=== PATIENT | female | born 1980 | race Caucasian/White ===

== ENCOUNTER 2018-07-28 01:34 | Emergency (ER) | payer OTHER ==
[~2018-07-28] VITALS: Ht 162.6 cm; Wt 68.2 kg
[~2018-07-28 01:34] MED LIST: ACCOLATE10 MG; AMOXICILLIN500 MG PO; AUGMENTIN875TAB PO; CREON12000 UNT PO; FLONASE NASAL50 MCG; GENERESS FE OR; IMODIUM2 MG; KEFLEX500 MG PO; LO LOESTRIN PO; LOESTRIN 24 OR; MEDDOSEPAK PO; METRONIDAZOL500 MG PO; MUCINEX600 MG PO; NO HOME MEDS; PEPCID20 MG; PHENERGAN SUP12.5 MG; PREDNISONE20 MG PO; SUMATRIPTA1 IJ; TOBRAMYCIN0.3 % OD; ULTRAM50 M1 PO; ULTRAM50 MG OR; ZOFRAN ODT4 MG PO; ZPAK OR
[2018-07-28 02:06] LABS: HEMATOCRIT 33.3 % (37.0-47.0); HEMOGLOBIN 10.9 g/dl (12.0-16.0); IMMATURE GRANULOCYTES 0.2 % (0.0-5.0); MEAN CELL VOLUME 97.4 fL CALC (80.0-100.0); MEAN CORPUSCULAR HGB 31.9 pG CALC (26.0-32.0); MEAN CORPUSCULAR HGB CONC 32.7 g/L CALC (32.0-36.0); NEUT# 6.47 thou/uL (2.00-7.15); RED BLOOD COUNT 3.42 mill/uL (4.20-5.60); RED CELL DISTRI WIDTH 12.6 % (11.5-15.5)
[2018-07-28 03:02] LABS: ALBUMIN 3.8 g/dL (3.2-5.0); ALKALINE PHOSPHATASE 36 u/l (38-126); AMYLASE 53 u/l (30-110); ANION GAP 11 (6-22 (CALC)); BILIRUBIN, TOTAL 0.6 mg/dL (0.0-1.4); BUN 8 mg/dL (7-17); BUN/CREATININE RATIO 12 (12-20 (CALC)); CARBON DIOXIDE 25 mmol/l (22-30); CHLORIDE 107 mmol/l (95-108); CREATININE 0.6 mg/dL (0.5-1.0); GFR > 60 ML/MIN (>=60 (CALC)); GFR FOR AFR.AMER. > 60 ML/MIN (>=60 (CALC)); LIPASE 67 u/l (23-300); POTASSIUM 3.3 mmol/l (3.5-5.1); SODIUM 141 mmol/l (137-146); TOTAL PROTEIN 6.5 g/dL (6.3-8.2)
[2018-07-28 03:08] LABS: SGOT/AST 49 u/l (14-36)
[2018-07-28 04:14] LABS: URINE BILIRUBIN - DIPSTICK NEGATIVE (NEGATIVE); URINE BLOOD DIPSTICK TRACE-INTACT (NEGATIVE); URINE COLOR YELLOW; URINE GLUCOSE - DIPSTICK NEGATIVE (NEGATIVE); URINE KETONE NEGATIVE (NEGATIVE); URINE LEUK ESTERASE NEGATIVE (NEGATIVE); URINE NITRITE - DIPSTICK NEGATIVE (Negative); URINE PH 5.5 (4.5-8.0); URINE PROTEIN - DIPSTICK NEGATIVE (NEG-TRACE); URINE UROBILINOGEN - DIPSTICK 0.2 E.U./dL (0.2)
[2018-07-28 04:24] LABS: URINE CLARITY CLEAR
[2018-07-28] MEDS ORDERED: PROTONIX40 MG PO (05:47)
[2018-07-28 06:04] VITALS: BP 132/81
== END 2018-07-28 06:05 | disposition home or self-care (01) | DRG 392 ==
LOC: ED 01:34
PROVIDERS: Emergency Medicine
DX: R10.13 Epigastric pain (principal)
CPT/HCPCS: S0164

== ENCOUNTER 2020-05-08 02:52 | Emergency (ER) | payer BC ==
[~2020-05-08] VITALS: Ht 162.6 cm; Wt 70.5 kg
[~2020-05-08 02:52] MED LIST changes: +PROTONIX40 MG PO
[2020-05-08] MEDS ORDERED: PHENERGAN25 MG RE (03:46)
[2020-05-08] MEDS ORDERED: IMITREX6 MG/0.5 M SC (03:46)
[2020-05-08 04:24] VITALS: BP 109/60
== END 2020-05-08 04:24 | disposition home or self-care (01) | DRG 103 ==
LOC: ED 02:52
DX: G43.909 Migraine, unspecified, not intractable, without status migrainosus (principal)

== ENCOUNTER 2021-01-07 | Emergency (ER) | payer BC ==
[~2021-01-07] MED LIST changes: +IMITREX6 MG/0.5 M SC; +PHENERGAN25 MG RE
[2021-01-07] MEDS ORDERED: FIORICET PO (10:43)
[2021-01-07] MEDS ORDERED: ONDANSETRON4 MG PO (10:43)
== END 2021-01-07 11:13 | disposition home or self-care (01) | DRG 103 ==
DX: G43.909 Migraine, unspecified, not intractable, without status migrainosus (principal)

== ENCOUNTER 2022-08-15 03:51 | Emergency (ER) | payer BC ==
[~2022-08-15] VITALS: Ht 162.6 cm; Wt 70.1 kg
[~2022-08-15 03:51] MED LIST changes: +FIORICET PO; +ONDANSETRON4 MG PO
[2022-08-15 04:46] LABS: ALBUMIN 4.2 g/dL (3.2-5.0); ALKALINE PHOSPHATASE 37 u/l (38-126); ANION GAP 11 (6-22 (CALC)); BILIRUBIN, TOTAL 0.4 mg/dL (0.0-1.4); BUN 8 mg/dL (7-17); BUN/CREATININE RATIO 12 (12-20 (CALC)); CARBON DIOXIDE 24 mmol/l (22-30); CHLORIDE 107 mmol/l (95-108); CREATININE 0.7 mg/dL (0.5-1.0); GFR FOR AFR.AMER. > 60 ML/MIN (>=60 (CALC)); GFR OTHER RACES > 60 ML/MIN (>=60 (CALC)); LIPASE 64 u/l (23-300); SGOT/AST 33 u/l (14-36); SODIUM 138 mmol/l (137-146); TOTAL PROTEIN 6.8 g/dL (6.3-8.2)
[2022-08-15 04:50] LABS: POTASSIUM 4.1 mmol/l (3.5-5.1)
[2022-08-15 04:51] LABS: IMMATURE GRANULOCYTES 0.1 % (0.0-5.0); MEAN CELL VOLUME 92.9 fL CALC (80.0-100.0); MEAN CORPUSCULAR HGB 30.9 pG CALC (26.0-32.0); MEAN CORPUSCULAR HGB CONC 33.3 g/dL CAL (32.0-36.0); NEUT# 8.29 thou/uL (2.00-7.15); RED BLOOD COUNT 4.37 mill/uL (4.20-5.60); RED CELL DISTRI WIDTH 11.9 % (11.5-15.5)
[2022-08-15 04:52] LABS: HEMATOCRIT 40.6 % (37.0-47.0); HEMOGLOBIN 13.5 g/dl (12.0-16.0)
[2022-08-15 05:16] VITALS: BP 127/90
== END 2022-08-15 05:15 | disposition home or self-care (01) | DRG 880 ==
LOC: ED 03:51
PROVIDERS: Emergency Medicine
DX: F41.9 Anxiety disorder, unspecified (principal); T38.0X5A Adverse effect of glucocorticoids and synthetic analogues, initial encounter; J32.9 Chronic sinusitis, unspecified; R11.2 Nausea with vomiting, unspecified; R10.9 Unspecified abdominal pain
CPT/HCPCS: S0164

== ENCOUNTER 2022-08-17 11:24 | Emergency (ER) | payer BC ==
[~2022-08-17] VITALS: Ht 162.6 cm; Wt 65.9 kg
[2022-08-17] MEDS ORDERED: ZPAK PO (11:40)
[2022-08-17] MEDS ORDERED: ONDANSETRON4 MG PO (11:41)
[2022-08-17 11:52] LABS: HEMATOCRIT 41.2 % (37.0-47.0); HEMOGLOBIN 13.9 g/dl (12.0-16.0); IMMATURE GRANULOCYTES 0.1 % (0.0-5.0); MEAN CELL VOLUME 92.8 fL CALC (80.0-100.0); MEAN CORPUSCULAR HGB 31.3 pG CALC (26.0-32.0); MEAN CORPUSCULAR HGB CONC 33.7 g/dL CAL (32.0-36.0); NEUT# 6.16 thou/uL (2.00-7.15); RED BLOOD COUNT 4.44 mill/uL (4.20-5.60); RED CELL DISTRI WIDTH 11.9 % (11.5-15.5)
[2022-08-17 12:42] LABS: ALBUMIN 4.2 g/dL (3.2-5.0); ALKALINE PHOSPHATASE 31 u/l (38-126); ANION GAP 11 (6-22 (CALC)); BILIRUBIN, TOTAL 0.3 mg/dL (0.0-1.4); BUN 10 mg/dL (7-17); BUN/CREATININE RATIO 14 (12-20 (CALC)); CARBON DIOXIDE 28 mmol/l (22-30); CHLORIDE 107 mmol/l (95-108); CREATININE 0.7 mg/dL (0.5-1.0); GFR FOR AFR.AMER. > 60 ML/MIN (>=60 (CALC)); GFR OTHER RACES > 60 ML/MIN (>=60 (CALC)); LIPASE 83 u/l (23-300); POTASSIUM 3.8 mmol/l (3.5-5.1); SGOT/AST 41 u/l (14-36); SODIUM 142 mmol/l (137-146); TOTAL PROTEIN 6.8 g/dL (6.3-8.2)
[2022-08-17] MEDS ORDERED: PHENERGAN25 MG RE (12:59)
[2022-08-17] MEDS ORDERED: IMODIUM2 MG PO (12:59)
[2022-08-17] MEDS ORDERED: NEXIUM40 M1 PO (12:59)
[2022-08-17 13:55] VITALS: BP 133/78
== END 2022-08-17 13:55 | disposition home or self-care (01) | DRG 392 ==
LOC: ED 11:24
PROVIDERS: Emergency Medicine
DX: K52.9 Noninfective gastroenteritis and colitis, unspecified (principal)

== ENCOUNTER 2022-10-18 20:55 | Emergency (ER) | payer BC ==
[~2022-10-18] VITALS: Ht 162.6 cm; Wt 68.2 kg
[~2022-10-18 20:55] MED LIST changes: +IMODIUM2 MG PO; +NEXIUM40 M1 PO; +ZPAK PO
[2022-10-18 21:44] LABS: BASO% 0.3 % (0-3); EOS% 0.1 % (0-8); HEMATOCRIT 36.6 % (37.0-47.0); HEMOGLOBIN 12.4 g/dl (12.0-16.0); LYMPH% 9.4 % (15-41); MEAN CELL VOLUME 95.3 fL CALC (80.0-100.0); MEAN CORPUSCULAR HGB 32.3 pG CALC (26.0-32.0); MEAN CORPUSCULAR HGB CONC 33.9 g/dL CAL (32.0-36.0); MONO% 4.3 % (2-13); NEUT# 7.98 thou/uL (2.00-7.15); NEUT% 85.9 % (42-76); RED BLOOD COUNT 3.84 mill/uL (4.20-5.60); RED CELL DISTRI WIDTH 12.4 % (11.5-15.5)
[2022-10-18 21:44] LABS: URINE BILIRUBIN - DIPSTICK NEGATIVE (NEGATIVE); URINE BLOOD DIPSTICK TRACE-INTACT (NEGATIVE); URINE COLOR YELLOW; URINE GLUCOSE - DIPSTICK NEGATIVE (NEGATIVE); URINE KETONE TRACE mg/dL (NEGATIVE); URINE LEUK ESTERASE NEGATIVE (NEGATIVE); URINE PROTEIN - DIPSTICK NEGATIVE (NEG-TRACE); URINE UROBILINOGEN - DIPSTICK 0.2 E.U./dL (0.2)
[2022-10-18 21:45] LABS: URINE NITRITE - DIPSTICK NEGATIVE (Negative)
[2022-10-18 21:57] LABS: ALBUMIN 3.9 g/dL (3.2-5.0); ALKALINE PHOSPHATASE 37 u/l (38-126); ANION GAP 8 (6-22 (CALC)); BILIRUBIN, TOTAL 0.4 mg/dL (0.0-1.4); BUN 14 mg/dL (7-17); BUN/CREATININE RATIO 16 (12-20 (CALC)); CARBON DIOXIDE 27 mmol/l (22-30); CHLORIDE 106 mmol/l (95-108); CREATININE 0.9 mg/dL (0.5-1.0); GFR FOR AFR.AMER. > 60 ML/MIN (>=60 (CALC)); GFR OTHER RACES > 60 ML/MIN (>=60 (CALC)); LIPASE 82 u/l (23-300); POTASSIUM 3.5 mmol/l (3.5-5.1); SGOT/AST 28 u/l (14-36); SODIUM 137 mmol/l (137-146); TOTAL PROTEIN 6.5 g/dL (6.3-8.2)
[2022-10-18] MEDS ORDERED: PROCHLORPER25 MG RE (23:29)
[2022-10-18] MEDS ORDERED: VISTARIL25 MG PO (23:29)
[2022-10-19 00:15] VITALS: BP 128/80
[2022-10-20] MEDS ORDERED: ZOFRAN4 MG/TAB PO (15:04)
[2022-10-20] MEDS ORDERED: (None)125 MG PO (15:04)
== END 2022-10-19 00:20 | disposition home or self-care (01) | DRG 880 ==
LOC: ED 20:55
PROVIDERS: Family Medicine
DX: F41.9 Anxiety disorder, unspecified (principal)
CPT/HCPCS: J2060

== ENCOUNTER 2022-10-20 10:46 | Emergency (ER) | payer BC ==
[~2022-10-20] VITALS: Ht 162.6 cm; Wt 68.0 kg
[2022-10-20] VITALS (11 sets, daily range): BP systolic 116–132; BP diastolic 72–84
[~2022-10-20 10:46] MED LIST changes: +PROCHLORPER25 MG RE; +VISTARIL25 MG PO
[2022-10-20 11:19] LABS: URINE BILIRUBIN - DIPSTICK NEGATIVE (NEGATIVE); URINE BLOOD DIPSTICK TRACE-INTACT (NEGATIVE); URINE COLOR YELLOW; URINE GLUCOSE - DIPSTICK NEGATIVE (NEGATIVE); URINE KETONE NEGATIVE (NEGATIVE); URINE LEUK ESTERASE NEGATIVE (NEGATIVE); URINE PROTEIN - DIPSTICK NEGATIVE (NEG-TRACE); URINE UROBILINOGEN - DIPSTICK 0.2 E.U./dL (0.2)
[2022-10-20 11:21] LABS: BASO% 0.4 % (0-3); EOS% 0.2 % (0-8); HEMATOCRIT 38.9 % (37.0-47.0); HEMOGLOBIN 13.4 g/dl (12.0-16.0); IMMATURE GRANULOCYTES 0.1 % (0.0-5.0); LYMPH% 10.2 % (15-41); MEAN CELL VOLUME 94.9 fL CALC (80.0-100.0); MEAN CORPUSCULAR HGB 32.7 pG CALC (26.0-32.0); MEAN CORPUSCULAR HGB CONC 34.4 g/dL CAL (32.0-36.0); MONO% 2.7 % (2-13); NEUT# 8.14 thou/uL (2.00-7.15); NEUT% 86.4 % (42-76); RED BLOOD COUNT 4.1 mill/uL (4.20-5.60); RED CELL DISTRI WIDTH 12.4 % (11.5-15.5)
[2022-10-20 11:21] LABS: URINE NITRITE - DIPSTICK NEGATIVE (Negative)
[2022-10-20 11:30] LABS: ALBUMIN 4.3 g/dL (3.2-5.0); ALKALINE PHOSPHATASE < 20 u/l (38-126); ANION GAP 10 (6-22 (CALC)); BUN 7 mg/dL (7-17); BUN/CREATININE RATIO 10 (12-20 (CALC)); CARBON DIOXIDE 24 mmol/l (22-30); CHLORIDE 108 mmol/l (95-108); CREATININE 0.7 mg/dL (0.5-1.0); GFR FOR AFR.AMER. > 60 ML/MIN (>=60 (CALC)); GFR OTHER RACES > 60 ML/MIN (>=60 (CALC)); LIPASE 53 u/l (23-300); POTASSIUM 4.1 mmol/l (3.5-5.1); SGOT/AST 45 u/l (14-36); SODIUM 138 mmol/l (137-146); TOTAL PROTEIN 7.4 g/dL (6.3-8.2)
[2022-10-20] MEDS ORDERED: ZOFRAN4 MG/TAB PO (15:04)
[2022-10-20] MEDS ORDERED: (None)125 MG PO (15:04)
[2022-10-29] MEDS ORDERED: IMITREX5 MG/ACT (10:05)
[2022-10-29] MEDS ORDERED: AZELASTINE HCL0.1 % (10:05)
[2022-10-29] MEDS ORDERED: FLONASE AL50 MCG/ACT (10:05)
[2022-10-29] MEDS ORDERED: ASMANEX HFA50 MCG (10:05)
[2022-10-29] MEDS ORDERED: EFFEXOR XR37.5 MG PO (10:06)
[2022-10-29] MEDS ORDERED: VANCOMYCIN HCL250 M1 (10:06)
== END 2022-10-20 15:20 | disposition home or self-care (01) | DRG 392 ==
LOC: ED 10:46
PROVIDERS: Family Medicine
DX: R10.13 Epigastric pain (principal); B96.7 Clostridium perfringens [C. perfringens] as the cause of diseases classified elsewhere
CPT/HCPCS: J2060; Q9967

== ENCOUNTER 2022-10-22 07:11 | Emergency (ER) | payer BC ==
[~2022-10-22] VITALS: Ht 162.6 cm; Wt 65.7 kg
[~2022-10-22 07:11] MED LIST changes: +(None)125 MG PO; +ZOFRAN4 MG/TAB PO
[2022-10-22 07:24] VITALS: BP 157/131
[2022-10-22 07:30] VITALS: BP 150/91
[2022-10-22 07:49] VITALS: BP 141/97
[2022-10-22 07:54] LABS: BASO% 0.2 % (0-3); EOS% 0.1 % (0-8); HEMATOCRIT 42.6 % (37.0-47.0); HEMOGLOBIN 14.5 g/dl (12.0-16.0); IMMATURE GRANULOCYTES 0.1 % (0.0-5.0); LYMPH% 13.4 % (15-41); MEAN CELL VOLUME 94.7 fL CALC (80.0-100.0); MEAN CORPUSCULAR HGB 32.2 pG CALC (26.0-32.0); MONO% 3.5 % (2-13); NEUT# 7.93 thou/uL (2.00-7.15); NEUT% 82.7 % (42-76); RED BLOOD COUNT 4.5 mill/uL (4.20-5.60); RED CELL DISTRI WIDTH 12.1 % (11.5-15.5)
[2022-10-22 08:19] LABS: ALBUMIN 4.4 g/dL (3.2-5.0); BUN 8 mg/dL (7-17); BUN/CREATININE RATIO 9 (12-20 (CALC)); CARBON DIOXIDE 27 mmol/l (22-30); CHLORIDE 104 mmol/l (95-108); CREATININE 0.9 mg/dL (0.5-1.0); GFR FOR AFR.AMER. > 60 ML/MIN (>=60 (CALC)); GFR OTHER RACES > 60 ML/MIN (>=60 (CALC)); LIPASE 67 u/l (23-300); SGOT/AST 30 u/l (14-36); SODIUM 138 mmol/l (137-146); TOTAL PROTEIN 7.4 g/dL (6.3-8.2)
[2022-10-22 08:20] LABS: ALKALINE PHOSPHATASE 42 u/l (38-126); ANION GAP 10 (6-22 (CALC)); BILIRUBIN, TOTAL 0.5 mg/dL (0.0-1.4)
[2022-10-22] MEDS ORDERED: CARAFATE PO (11:05)
[2022-10-22] MEDS ORDERED: PROTONIX40 M2 PO (11:05)
[2022-10-22] MEDS ORDERED: KLOR-CON M2020 MEQ PO (11:05)
[2022-10-22 12:02] VITALS: BP 150/91
[2022-10-29] MEDS ORDERED: IMITREX5 MG/ACT (10:05)
[2022-10-29] MEDS ORDERED: FLONASE AL50 MCG/ACT (10:05)
[2022-10-29] MEDS ORDERED: ASMANEX HFA50 MCG (10:05)
[2022-10-29] MEDS ORDERED: AZELASTINE HCL0.1 % (10:05)
[2022-10-29] MEDS ORDERED: EFFEXOR XR37.5 MG PO (10:06)
[2022-10-29] MEDS ORDERED: VANCOMYCIN HCL250 M1 (10:06)
== END 2022-10-22 12:08 | disposition home or self-care (01) | DRG 373 ==
LOC: ED 07:11
PROVIDERS: Family Medicine
DX: A04.72 Enterocolitis due to Clostridium difficile, not specified as recurrent (principal); K29.70 Gastritis, unspecified, without bleeding
CPT/HCPCS: Q9967; S0164

== ENCOUNTER 2022-12-19 09:39 | Emergency (ER) | payer BC ==
[~2022-12-19] VITALS: Ht 162.6 cm; Wt 68.0 kg
[2022-12-19] VITALS (7 sets, daily range): BP systolic 122–141; BP diastolic 65–93
[~2022-12-19 09:39] MED LIST changes: +ASMANEX HFA50 MCG; +AZELASTINE HCL0.1 %; +CARAFATE PO; +EFFEXOR XR37.5 MG PO; +FLONASE AL50 MCG/ACT; +IMITREX5 MG/ACT; +KLOR-CON M2020 MEQ PO; +PROTONIX40 M2 PO; +VANCOMYCIN HCL250 M1
[2022-12-19 10:08] LABS: BASO% 0.3 % (0-3); EOS% 0.2 % (0-8); HEMATOCRIT 45.8 % (37.0-47.0); HEMOGLOBIN 14.6 g/dl (12.0-16.0); IMMATURE GRANULOCYTES 0.1 % (0.0-5.0); LYMPH% 10.5 % (15-41); MEAN CORPUSCULAR HGB 30.3 pG CALC (26.0-32.0); MEAN CORPUSCULAR HGB CONC 31.9 g/dL CAL (32.0-36.0); MONO% 4.7 % (2-13); NEUT# 8.79 thou/uL (2.00-7.15); NEUT% 84.2 % (42-76); RED BLOOD COUNT 4.82 mill/uL (4.20-5.60); RED CELL DISTRI WIDTH 11.9 % (11.5-15.5)
[2022-12-19 10:27] LABS: ALBUMIN 4.6 g/dL (3.2-5.0); ALKALINE PHOSPHATASE 51 u/l (38-126); ANION GAP 12 (6-22 (CALC)); BILIRUBIN, TOTAL 0.4 mg/dL (0.02-1.3); BUN 11 mg/dL (7-17); BUN/CREATININE RATIO 13 (12-20 (CALC)); CARBON DIOXIDE 28 mmol/l (22-30); CHLORIDE 104 mmol/l (95-108); CREATININE 0.8 mg/dL (0.5-1.0); GFR FOR AFR.AMER. > 60 ML/MIN (>=60 (CALC)); GFR OTHER RACES > 60 ML/MIN (>=60 (CALC)); LIPASE 87 u/l (23-300); POTASSIUM 3.1 mmol/l (3.5-5.1); SODIUM 140 mmol/l (137-146); TOTAL PROTEIN 7.8 g/dL (6.3-8.2)
[2022-12-19 10:29] LABS: SGOT/AST 58 u/l (14-36)
[2022-12-19 11:25] LABS: URINE BILIRUBIN - DIPSTICK NEGATIVE (NEGATIVE); URINE BLOOD DIPSTICK TRACE-INTACT (NEGATIVE); URINE COLOR YELLOW; URINE GLUCOSE - DIPSTICK NEGATIVE (NEGATIVE); URINE KETONE NEGATIVE (NEGATIVE); URINE LEUK ESTERASE NEGATIVE (NEGATIVE); URINE NITRITE - DIPSTICK NEGATIVE (Negative); URINE PROTEIN - DIPSTICK NEGATIVE (NEG-TRACE); URINE SPECIFIC GRAVITY <=1.005; URINE UROBILINOGEN - DIPSTICK 0.2 E.U./dL (0.2)
== END 2022-12-19 15:15 | disposition home or self-care (01) | DRG 392 ==
LOC: ED 09:39
PROVIDERS: Family Medicine
DX: R10.9 Unspecified abdominal pain (principal); R11.2 Nausea with vomiting, unspecified
CPT/HCPCS: Q9967

== ENCOUNTER 2022-12-30 12:24 | Emergency (ER) | payer BC ==
[2022-12-30] VITALS (12 sets, daily range): BP systolic 116–134; BP diastolic 77–96
[~2022-12-30] VITALS: Ht 162.6 cm; Wt 68.0 kg
[2022-12-30 14:33] LABS: BASO% 0.3 % (0-3); EOS% 0.1 % (0-8); HEMATOCRIT 42.7 % (37.0-47.0); HEMOGLOBIN 13.9 g/dl (12.0-16.0); IMMATURE GRANULOCYTES 0.1 % (0.0-5.0); LYMPH% 8.9 % (15-41); MEAN CELL VOLUME 92.8 fL CALC (80.0-100.0); MEAN CORPUSCULAR HGB 30.2 pG CALC (26.0-32.0); MEAN CORPUSCULAR HGB CONC 32.6 g/dL CAL (32.0-36.0); MONO% 4.4 % (2-13); NEUT# 10.43 thou/uL (2.00-7.15); NEUT% 86.2 % (42-76); RED BLOOD COUNT 4.6 mill/uL (4.20-5.60); RED CELL DISTRI WIDTH 12.1 % (11.5-15.5)
[2022-12-30 14:48] LABS: ALBUMIN 4.5 g/dL (3.2-5.0); ALKALINE PHOSPHATASE 61 u/l (38-126); ANION GAP 13 (6-22 (CALC)); BILIRUBIN, TOTAL 0.3 mg/dL (0.02-1.3); BUN 9 mg/dL (7-17); BUN/CREATININE RATIO 13 (12-20 (CALC)); CARBON DIOXIDE 25 mmol/l (22-30); CHLORIDE 103 mmol/l (95-108); CREATININE 0.7 mg/dL (0.5-1.0); GFR FOR AFR.AMER. > 60 ML/MIN (>=60 (CALC)); GFR OTHER RACES > 60 ML/MIN (>=60 (CALC)); POTASSIUM 3.5 mmol/l (3.5-5.1); SGOT/AST 35 u/l (14-36); SODIUM 137 mmol/l (137-146); TOTAL PROTEIN 7.4 g/dL (6.3-8.2)
[2022-12-30 15:06] LABS: BETA-HCG, QUANT(RESULT NUMBER) <2 mIU/mL
== END 2022-12-30 16:52 | disposition home or self-care (01) | DRG 880 ==
LOC: ED 12:24
PROVIDERS: Family Medicine
DX: F41.9 Anxiety disorder, unspecified (principal)
CPT/HCPCS: J2060

== ENCOUNTER 2023-01-27 06:50 | Emergency (ER) | payer BC | END 2023-01-27 07:05 | disposition left against medical advice (07) | DRG 951 | LOC: ED 06:50 → LWOBS 07:05 | DX: Z53.21 Procedure and treatment not carried out due to patient leaving prior to being seen by health care provider (principal) ==